=== PATIENT | female | born 1940 | race Hispanic/Latino ===

== ENCOUNTER → 2018-09-02 | Outpatient (CLI) | payer MEDICARE ==
[~2018-09-02] MED LIST: CLOR7.5T5 PO; LEVO50 PO; PANT40TA25 PO; REGADENOSON 0.4 MG/5 ML PF SYG IVP SCH
== END | disposition home or self-care (01) ==
LOC: SHCH 08:39
PROVIDERS: ATTEND Internal Medicine Cardiovascular Disease
DX: R00.2 Palpitations (principal); I20.9 Angina pectoris, unspecified; I10 Essential (primary) hypertension
CPT/HCPCS: 78452; 93017; 96374; A9500 ×2; J2785

== ENCOUNTER → 2018-09-09 | Outpatient (CLI) | payer MEDICARE ==
[~2018-09-09] MED LIST changes: -REGADENOSON 0.4 MG/5 ML PF SYG IVP SCH
== END | disposition home or self-care (01) ==
LOC: SHCH 10:50
PROVIDERS: ATTEND Internal Medicine Cardiovascular Disease
DX: I20.9 Angina pectoris, unspecified (principal); R00.2 Palpitations
CPT/HCPCS: 93306

== ENCOUNTER 2018-10-12 19:48 | Emergency (ER) | payer MEDICARE ==
[2018-10-12 20:30] LABS: APPEARANCE,URINE Clear (CLEAR); BILIRUBIN,URINE Negative (NEGATIVE); COLOR,URINE Yellow (YELLOW); GLUCOSE, URINE (UA) Negative (NEGATIVE); KETONES,URINE Negative (NEGATIVE); LEUKOCYTE ESTERASE ,URINE Trace (NEGATIVE); NITRATE,URINE Negative (NEGATIVE); OCCULT BLOOD,URINE Negative (NEGATIVE); PROTEIN,URINE Negative (NEGATIVE); UROBILINOGEN,URINE 0.2 mg/dL (0.2-1.0)
[2018-10-12 20:46] LABS: BACTERIA,URINE Rare /HPF (None Seen); RBC,URINE 0-1 /HPF (0-1); SQUAMOUS EPITHELIAL CELL,UR None Seen /HPF (0-2); WBC,URINE 0-1 /HPF (0-1)
[2018-10-12] MEDS ORDERED: TRAMADOL HCL 50 MG TABLET ONE (20:57)
[2018-10-12 21:21] LABS: POTASSIUM 4.2 mmol/L (3.5-5.1)
[2018-10-12 21:55] LABS: BASOPHILS % (AUTO) 1.8 % (0.0-5.0); EOSINOPHILS % (AUTO) 1.6 % (0.0-8.0); HEMATOCRIT 37.2 % (36-48); LYMPHOCYTES % (AUTO) 28.4 % (21.0-51.0); MEAN CORPUSCULAR HEMOGLOBIN 30.4 pg (27.0-33.0); MEAN CORPUSCULAR HGB CONC 33.4 g/dL (32.0-36.0); MEAN CORPUSCULAR VOLUME 90.8 fL (79-99); MONOCYTES % (AUTO) 12.1 % (3.0-13.0); NEUTROPHILS % (AUTO) 56.1 % (40.0-77.0); PLATELET COUNT (AUTO) 222 K/uL (130-400); RED CELL DISTRIBUTION WIDTH 15.2 % (11.0-15.5); WHITE BLOOD COUNT (AUTO) 5.4 K/uL (4.8-10.8)
== END 2018-10-12 22:05 | disposition home or self-care (01) ==
LOC: EDH 19:48
DX: B02.9 Zoster without complications (principal); E78.5 Hyperlipidemia, unspecified; E07.9 Disorder of thyroid, unspecified
CPT/HCPCS: 36415; 80048; 81001; 85025

== ENCOUNTER 2020-10-07 02:41 | Observation (INO) | payer MEDICARE, OTHER ==
[2020-10-07] VITALS (24 sets, daily range): BP systolic 123–176; BP diastolic 60–89
[~2020-10-07] VITALS: Ht 152.4 cm; Wt 57.1 kg
[~2020-10-07 02:41] MED LIST changes: -PANT40TA25 PO; +PANT40TA54 PO
[2020-10-07 03:29] LABS: BASOPHILS % (AUTO) 0.2 % (0.0-5.0); HEMATOCRIT 40.2 % (36-48); LYMPHOCYTES % (AUTO) 10.9 % (21.0-51.0); MEAN CORPUSCULAR HGB CONC 32.6 g/dL (32.0-36.0); MONOCYTES % (AUTO) 2.9 % (3.0-13.0); NEUTROPHILS % (AUTO) 85.5 % (40.0-77.0); PLATELET COUNT (AUTO) 238 K/uL (130-400); RED BLOOD CELL COUNT(AUTO) 4.37 MIL/uL (4.00-5.50); RED CELL DISTRIBUTION WIDTH 13.3 % (11.0-15.5); WHITE BLOOD COUNT (AUTO) 14.1 K/uL (4.8-10.8)
[2020-10-07 03:34] LABS: CREATININE 1.2 mg/dL (0.5-1.5); POTASSIUM 3.5 mmol/L (3.5-5.1)
[2020-10-07 03:37] LABS: INR 0.95 (0.85-1.15); PARTIAL THROMBOPLASTIN TIME 27.7 SEC (26.3-35.5); PROTHROMBIN TIME 10.3 SEC (9.6-11.6)
[2020-10-07 03:38] LABS: ALBUMIN 4.5 g/dL (3.5-5.0); BILIRUBIN,TOTAL 0.5 mg/dL (0.2-1.0); TOTAL PROTEIN, SERUM 8.7 g/dL (6.0-8.3)
[2020-10-07 04:00] LABS: APPEARANCE,URINE Clear (CLEAR); BILIRUBIN,URINE Negative (NEGATIVE); COLOR,URINE Yellow (YELLOW); GLUCOSE, URINE (UA) TRACE mg/dL (NEGATIVE); KETONES,URINE 40 mg/dL (NEGATIVE); LEUKOCYTE ESTERASE ,URINE Negative (NEGATIVE); NITRATE,URINE Negative (NEGATIVE); OCCULT BLOOD,URINE Small (NEGATIVE); PROTEIN,URINE POS 2+ mg/dL (NEGATIVE); UROBILINOGEN,URINE 0.2 mg/dL (0.2-1.0)
[2020-10-07 04:12] LABS: BACTERIA,URINE None Seen /HPF (None Seen); MUCUS,URINE Few LPF (None Seen); SQUAMOUS EPITHELIAL CELL,UR Few /HPF (0-2); WBC,URINE None Seen /HPF (0-1)
[2020-10-07] MEDS ORDERED: IOHEXOL-350 75 ML VIAL IV ONE (05:06)
[2020-10-07] MEDS ORDERED: ZOSYN 3.375GM+NS 50ML 50 ML IV ONE (06:14)
[2020-10-07] MEDS ORDERED: ONDANSETRON HCL 4 MG/2 ML VIAL ONE ×2 (06:38→14:13)
[2020-10-07] MEDS ORDERED: SODIUM CHLORIDE 0.9% 50 ML IV ONE (06:39)
[2020-10-07] MEDS ORDERED: MAG HYDROX/AL HYDROX/SIMETH ES 30 ML SUSP UDCUP PO PRN (12:30)
[2020-10-07] MEDS ORDERED: LACTATED RINGERS 1000ML 1,000 ML IV SCH (12:30)
[2020-10-07] MEDS ORDERED: ONDANSETRON HCL 4 MG/2 ML VIAL IV PRN (12:30)
[2020-10-07] MEDS ORDERED: MORPHINE SULFATE 4 MG/1ML SYG IV PRN (12:30)
[2020-10-07] MEDS ORDERED: MORPHINE SULFATE 2 MG/ML 1ML SYG IV PRN (12:30)
[2020-10-07] MEDS ORDERED: ACETAMINOPHEN-CODEINE 300/30MG TAB PO PRN ×2 (12:30)
[2020-10-07] MEDS ORDERED: HYDRALAZINE HCL 20 MG/ML VIAL IV PRN (12:30)
[2020-10-07] MEDS ORDERED: DiphenhydrAMINE HCL 50 MG/ML VIAL IV PRN (12:30)
[2020-10-07] MEDS ORDERED: DIPHENHYDRAMINE HCL 25 MG CAPSULE PO PRN (12:30)
[2020-10-07] MEDS ORDERED: LACTATED RINGERS 1000ML 1,000 ML IV ONE (12:54)
[2020-10-07] MEDS ORDERED: BUPIVACAINE/PF 0.5% 30ML VIAL ONE (13:33)
[2020-10-07] MEDS ORDERED: DEXAMETHASONE SOD PHOSPHATE 10MG/ML 1ML VIAL ONE (14:13)
[2020-10-07] MEDS ORDERED: ROCURONIUM 10MG/1ML SYR 10 MG/ML ML ONE (14:13)
[2020-10-07] MEDS ORDERED: LIDOCAINE PF 2% 5ML ABBOJECT ONE (14:13)
[2020-10-07] MEDS ORDERED: PROPOFOL 10 MG/ML 20ML VIAL IV ONE (14:13)
[2020-10-07] MEDS ORDERED: MIDAZOLAM HCL 1 MG/ML 2ML VIAL ONE (14:13)
[2020-10-07] MEDS ORDERED: SUCCINYLCHOLINE 200MG/10ML SYR ONE (14:13)
[2020-10-07] MEDS ORDERED: FENTANYL CITRATE PF 50 MCG/1 ML 2ML VIAL ONE (14:13)
[2020-10-07] MEDS ORDERED: GLYCOPYRROLATE 1 MG/5 ML SYRINGE ONE (14:40)
[2020-10-07] MEDS ORDERED: NEOSTIGMINE 5MG/5ML SYR IV ONE (14:41)
--- NOTE | 2020-10-07 16:43 | NUR ---
[id number] PATIENT SIGNED SALGADO LETTER, I FAXED [facility]O LETTER TO 8210 AND PLACED IN CHART UNDER CONSENT TAB.
[2020-10-07] MEDS ORDERED: CETI10TA57 PO (17:10)
[2020-10-07] MEDS ORDERED: FLUT16H NASAL (17:10)
[2020-10-07] MEDS: ZOSYN 3.375GM+NS 50ML 50 ML IV SCH (21:00)
[2020-10-08 00:36] VITALS: BP 106/59
[2020-10-08 04:40] VITALS: BP 123/58
[2020-10-08 06:18] LABS: HEMATOCRIT 39.6 % (36-48); MEAN CORPUSCULAR HEMOGLOBIN 29.7 pg (27.0-33.0); MEAN CORPUSCULAR HGB CONC 32.1 g/dL (32.0-36.0); MEAN CORPUSCULAR VOLUME 92.7 fL (79-99); RED BLOOD CELL COUNT(AUTO) 4.27 MIL/uL (4.00-5.50); RED CELL DISTRIBUTION WIDTH 13.9 % (11.0-15.5)
[2020-10-08 06:35] LABS: CREATININE 1.2 mg/dL (0.5-1.5)
[2020-10-08] MEDS ORDERED: FLU VACC QS2020-21(6MOS UP)/PF 60 MCG/0.5 ML ML IM SCH (07:45)
[2020-10-08 08:33] VITALS: BP 131/62
[2020-10-08] MEDS ORDERED: FLU VACC QS2020-21(6MOS UP)/PF 60 MCG/0.5 ML ML IM ONE (09:00)
[2020-10-08] MEDS ORDERED: ENOXAPARIN SODIUM 40 MG/0.4 ML SYRINGE SQ SCH (09:00)
[2020-10-08] MEDS ORDERED: FAMOTIDINE/PF 20 MG/2 ML VIAL IV SCH (09:00)
[2020-10-08] MEDS: ZOSYN 3.375GM+NS 50ML 50 ML IV SCH (09:40)
[2020-10-08 12:12] VITALS: BP 143/74
[2020-10-08 16:09] VITALS: BP 110/66
--- NOTE | 2020-10-08 17:14 | NUR ---
DCP CM met with pt and daughter on room discussed dc plans. Pt is independent prior to admission, lives at home with spouse, son Sujit Valenzuela lives close by. Pt has a walker. Denies any other equipments/services. Feels safe to go back home, son and spouse able to assist with transportation and needs as necessary. DC plan to home once stable. CM to continue to follow up. Addendum: 10/08/20 at 1716 by ISRAEL VALENZUELA LVN CM Amended: Links added.
--- NOTE | 2020-10-08 18:45 | NUR ---
DISCHARGE PATIENT GIVEN DISCHARGE INSTRUCTIONS VIA TEACH BACK. 20G PIV TO LAC DISCONTINUED, TIP INTACT. PATIENT TO MAKE FOLLOW UP APPOINTMENT WITH DR. HUI AND PCP IN 1 WEEK. NO RX GIVEN, MAY TAKE OTC PAIN MEDS NEEDED. MAY SHOWER AND REPLACE BAND-AIDS NEEDED. PATIENT STABLE AT THIS TIME, DAUGHTER AT BEDSIDE. PATIENT WHEELED TO [facility] FOR DISCHARGE BY YOLIE HERNANDEZ.
== END 2020-10-08 18:35 | disposition home or self-care (01) ==
LOC: EDH 02:41 → EDHIP 12:16 → 3BH 15:40
PROVIDERS: ADMIT Internal Medicine; ATTEND Internal Medicine
DX: K35.30 Acute appendicitis with localized peritonitis, without perforation or gangrene (principal); Z20.828 Contact with and (suspected) exposure to other viral communicable diseases; R11.0 Nausea; E78.5 Hyperlipidemia, unspecified; E03.9 Hypothyroidism, unspecified; F41.9 Anxiety disorder, unspecified; J30.2 Other seasonal allergic rhinitis; Z23 Encounter for immunization; Z90.49 Acquired absence of other specified parts of digestive tract; Z90.710 Acquired absence of both cervix and uterus; Z79.899 Other long term (current) drug therapy
CPT/HCPCS: 36415 ×2; 44970; 71045; 74177; 80048; 80053; 81001; 82550; 84484; 85025; 85027; 85610; 85730; 87426; 90471; 93005; 96365; 96366 ×2; 96372; 96375; 99285; A4649 ×3; C1769 ×3; G0378 ×13; J0330; J1100; J1650; J2001; J2250; J2405 ×2; J2543 ×3; J2704; J2710; J3010; J3490 ×3; J7030; J7120; Q2035; Q9967; U0003

== ENCOUNTER 2021-03-26 04:45 | Observation (INO) | payer OTHER ==
[~2021-03-26] VITALS: Ht 152.4 cm; Wt 58.2 kg
[~2021-03-26 04:45] MED LIST changes: +CETI10TA57 PO; +FLUT16H NASAL; -PANT40TA54 PO
[2021-03-26 05:11] LABS: BASOPHILS % (AUTO) 0.6 % (0.0-5.0); EOSINOPHILS % (AUTO) 1.6 % (0.0-8.0); HEMATOCRIT 41.8 % (36-48); LYMPHOCYTES % (AUTO) 54.7 % (21.0-51.0); MEAN CORPUSCULAR HEMOGLOBIN 29.3 pg (27.0-33.0); MEAN CORPUSCULAR HGB CONC 31.8 g/dL (32.0-36.0); MEAN CORPUSCULAR VOLUME 92.1 fL (79-99); NEUTROPHILS % (AUTO) 34.7 % (40.0-77.0); PLATELET COUNT (AUTO) 243 K/uL (130-400); RED BLOOD CELL COUNT(AUTO) 4.54 MIL/uL (4.00-5.50); RED CELL DISTRIBUTION WIDTH 13.7 % (11.0-15.5); WHITE BLOOD COUNT (AUTO) 8.2 K/uL (4.8-10.8)
[2021-03-26 05:20] LABS: CREATININE 1.1 mg/dL (0.5-1.5); POTASSIUM 4.3 mmol/L (3.5-5.1)
[2021-03-26 05:25] LABS: ALBUMIN 4.3 g/dL (3.5-5.0); BILIRUBIN,TOTAL 0.2 mg/dL (0.2-1.0)
[2021-03-26 05:27] LABS: INR 0.94 (0.85-1.15); PROTHROMBIN TIME 10.3 SEC (9.6-11.6)
[2021-03-26 05:29] LABS: PARTIAL THROMBOPLASTIN TIME 26.9 SEC (26.3-35.5)
[2021-03-26] MEDS ORDERED: NITROGLYCERIN 0.4 MG SL TAB SL ONE (05:29)
[2021-03-26] MEDS ORDERED: ASPIRIN 325 MG TABLET ONE (05:29)
[2021-03-26 05:32] LABS: B-TYPE NATRIURETIC PEPTIDE 33 pg/mL (0-100)
[2021-03-26] MEDS ORDERED: NITROGLYCERIN 1GM/1 INCH PACKET TD ONE (06:09)
[2021-03-26] MEDS ORDERED: MORPHINE SULFATE 2 MG/ML 1ML SYG IV PRN (06:30)
[2021-03-26] MEDS ORDERED: NITROGLYCERIN 0.4 MG SL TAB SL PRN (06:30)
[2021-03-26] MEDS ORDERED: LACTULOSE 20 GM/30 ML UDCUP PO PRN (06:30)
[2021-03-26] MEDS ORDERED: ACETAMINOPHEN 325 MG TAB PO PRN (06:30)
[2021-03-26] MEDS ORDERED: GUAIFENESIN-DM 200/20 MG 10 ML PO PRN (06:30)
[2021-03-26] MEDS ORDERED: ONDANSETRON HCL 4 MG/2 ML VIAL IV PRN (06:30)
[2021-03-26] MEDS ORDERED: LEVO50TA11 PO (06:42)
[2021-03-26] MEDS ORDERED: GABA-529 PO (06:42)
[2021-03-26] MEDS ORDERED: LABETALOL HCL 5 MG/ML 20ML VIAL IV PRN (07:15)
[2021-03-26] MEDS ORDERED: LIDOCAINE HCL-MPF 1% 2ML VIAL IV PRN ×2 (08:00)
[2021-03-26] MEDS ORDERED: POTASSIUM CHLORIDE 20 MEQ ERTAB PO PRN (08:00)
[2021-03-26] MEDS ORDERED: POTASSIUM CHLORIDE 10% ELIXIR 20 MEQ/15 ML UDCUP PO PRN (08:00)
[2021-03-26] MEDS ORDERED: MAGNESIUM 2GM PREMIX 50ML 50 ML IV PRN (08:00)
[2021-03-26] MEDS ORDERED: POTASSIUM CHLORIDE 20MEQ/100ML 100 ML IV PRN ×2 (08:00)
[2021-03-26] MEDS: AMLODIPINE BESYLATE 5 MG TAB PO SCH (09:00)
[2021-03-26] MEDS: ENOXAPARIN SODIUM 60 MG/0.6 ML SQ SCH ×2 (09:00→19:36)
[2021-03-26] MEDS: FAMOTIDINE/PF 20 MG/2 ML VIAL IV SCH (09:00)
[2021-03-26] MEDS ORDERED: ENOXAPARIN SODIUM 60 MG/0.6 ML SQ ONE (09:07)
[2021-03-26] MEDS ORDERED: FAMOTIDINE/PF 20 MG/2 ML VIAL IV ONE (09:08)
[2021-03-26] MEDS ORDERED: AMLODIPINE BESYLATE 5 MG TAB ONE (10:02)
[2021-03-26] MEDS ORDERED: KETOROLAC TROMETHAMINE 15MG/ML IV PRN (14:00)
[2021-03-26 14:07] VITALS: BP 141/74
[2021-03-26] MEDS: NITROGLYCERIN 1GM/1 INCH PACKET TD SCH ×2 (15:12→19:19)
[2021-03-26] MEDS: ACETAMINOPHEN 325 MG TAB PO PRN (15:16)
[2021-03-26 16:46] VITALS: BP 121/71
[2021-03-26] MEDS ORDERED: IOHEXOL-350 75 ML VIAL IV ONE (16:47)
[2021-03-26] MEDS: SODIUM CHLORIDE 0.9% 1000ML 1,000 ML IV SCH (17:18)
[2021-03-26 19:18] LABS: APPEARANCE,URINE Clear (CLEAR); BILIRUBIN,URINE Negative (NEGATIVE); COLOR,URINE Yellow (YELLOW); GLUCOSE, URINE (UA) Negative (NEGATIVE); KETONES,URINE Negative (NEGATIVE); LEUKOCYTE ESTERASE ,URINE Trace (NEGATIVE); NITRATE,URINE Negative (NEGATIVE); OCCULT BLOOD,URINE Negative (NEGATIVE); PH,URINE 7.5 (5.0-8.0); PROTEIN,URINE Negative (NEGATIVE); UROBILINOGEN,URINE 0.2 mg/dL (0.2-1.0)
[2021-03-26 19:47] LABS: BACTERIA,URINE Rare /HPF (None Seen); RBC,URINE 0-1 /HPF (0-1); SQUAMOUS EPITHELIAL CELL,UR Rare /HPF (0-2); WBC,URINE 0-1 /HPF (0-1)
[2021-03-26 21:00] VITALS: BP 119/72
[2021-03-27 00:55] VITALS: BP 124/65
[2021-03-27] MEDS ORDERED: CETIRIZINE HCL 5 MG TABLET PO PRN (01:30)
[2021-03-27] MEDS ORDERED: FLUTICASONE PROPIONATE 50MCG/SPRAY 16 GM BOTTLE NS PRN (01:30)
[2021-03-27] MEDS: NITROGLYCERIN 1GM/1 INCH PACKET TD SCH ×2 (03:40→13:45)
[2021-03-27 03:45] LABS: HEMATOCRIT 34.8 % (36-48); MEAN CORPUSCULAR HEMOGLOBIN 30.3 pg (27.0-33.0); MEAN CORPUSCULAR VOLUME 91.8 fL (79-99); RED BLOOD CELL COUNT(AUTO) 3.79 MIL/uL (4.00-5.50); RED CELL DISTRIBUTION WIDTH 13.8 % (11.0-15.5); WHITE BLOOD COUNT (AUTO) 5.9 K/uL (4.8-10.8)
[2021-03-27 03:56] LABS: CREATININE 0.9 mg/dL (0.5-1.5); POTASSIUM 3.9 mmol/L (3.5-5.1)
[2021-03-27 04:00] VITALS: BP 145/69
[2021-03-27] MEDS ORDERED: LEVOTHYROXINE 50 MCG TABLET ONE (04:06)
[2021-03-27] MEDS ORDERED: LEVOTHYROXINE 50 MCG TABLET PO SCH (06:30)
[2021-03-27 07:00] VITALS: BP 142/73
[2021-03-27] MEDS: AMLODIPINE BESYLATE 5 MG TAB PO SCH (08:22)
[2021-03-27] MEDS: FAMOTIDINE/PF 20 MG/2 ML VIAL IV SCH (08:22)
[2021-03-27] MEDS: ENOXAPARIN SODIUM 60 MG/0.6 ML SQ SCH (08:25)
[2021-03-27] MEDS ORDERED: CLORAZEPATE DIPOTASSIUM 7.5 MG PO PRN (09:00)
[2021-03-27] MEDS: ACETAMINOPHEN 325 MG TAB PO PRN (11:03)
[2021-03-27 11:30] VITALS: BP 154/72
[2021-03-27] MEDS: SODIUM CHLORIDE 0.9% 1000ML 1,000 ML IV SCH (12:30)
[2021-03-27] MEDS ORDERED: AMLO5TAB4 PO (15:06)
[2021-03-28] MEDS ORDERED: ENOXAPARIN SODIUM 40 MG/0.4 ML SYRINGE SQ SCH (09:00)
== END 2021-03-27 16:14 | disposition home or self-care (01) ==
LOC: EDH 04:45 → EDHIP 06:24 → 4AH 11:55
PROVIDERS: ADMIT Internal Medicine Critical Care Medicine; ATTEND Internal Medicine Critical Care Medicine
DX: R07.89 Other chest pain (principal); Z20.822 Contact with and (suspected) exposure to COVID-19; R42 Dizziness and giddiness; I10 Essential (primary) hypertension; R79.1 Abnormal coagulation profile; M19.90 Unspecified osteoarthritis, unspecified site; R94.31 Abnormal electrocardiogram [ECG] [EKG]; I77.1 Stricture of artery; F41.9 Anxiety disorder, unspecified; E03.9 Hypothyroidism, unspecified; Z90.710 Acquired absence of both cervix and uterus; Z79.899 Other long term (current) drug therapy
CPT/HCPCS: 36415 ×2; 71045; 71275; 80048; 80053; 81001; 82550; 83605; 83690; 83880 ×2; 84484 ×4; 85025; 85027; 85378; 85610; 85730; 87040 ×2; 87426; 93005 ×2; 93306; 93356; 93880; 93970; 96361 ×2; 96372 ×2; 96374; 99285; G0378 ×33; J1650 ×3; J3490 ×2; Q9967; U0003